=== PATIENT | male | born 1980 | race American Indian/Alaskan Native ===

== ENCOUNTER 2017-11-24 22:59 | Emergency (ER) | payer OTHER ==
[2017-11-24 22:59] VITALS: BMI 28.0
[2017-11-24 23:10] VITALS: PULSE 82; RESP 20; O2SAT 97
--- NOTE | 2017-11-25 01:54 | C.PDOC ---
History Of Present Illness Patient is a 37 y/o male who presents to the ED BIBA s/p found walking the streets. Patient admits to drinking alcohol and smoking marijuana tonight. Denies SI or HI. No other physical complaints at this time. Time Seen by Provider: 11/25/17 01:53 Chief Complaint (Nursing): Substance Abuse History Per: Patient History/Exam Limitations: no limitations Onset/Duration Of Symptoms: Hrs Current Symptoms Are (Timing): Still Present Suicide/Self Injury Attempted (Context): None Modifying Factor(s): Alcohol, Marijuana Recent travel outside of the [place]: No Past Medical History Reviewed: Historical Data, Nursing Documentation, Vital Signs Vital Signs: Last Vital Signs Temp 97.9 F 11/24/17 23:06 Pulse 82 11/24/17 23:06 Resp 20 11/24/17 23:06 BP 132/76 11/24/17 23:06 Pulse Ox 97 11/25/17 02:36 - Medical History PMH: Bipolar Disorder, Bronchitis, Schizophrenia Denies: Diabetes, Hepatitis, HIV, HTN, Chronic Kidney Disease, Seizures, Sexually Transmitted Disease Surgical History: Back Surgery Family History: States: No Known Family Hx - Social History Hx Tobacco Use: Yes (5 CIG/DAY) Hx Alcohol Use: Yes Hx Substance Use: Yes - Immunization History Hx Tetanus Toxoid Vaccination: No Hx Influenza Vaccination: No Hx Pneumococcal Vaccination: No Review Of Systems Neurological: Positive for: Other (EtOH and marijuana intoxication) Psych: Positive for: Other (denies homicidal ideation). Negative for: Suicidal ideation Physical Exam - Physical Exam Appears: No Acute Distress Skin: Warm, Dry Head: Normacephalic Oral Mucosa: Moist Chest: Symmetrical Cardiovascular: Rhythm Regular, No Murmur Respiratory: Normal Breath Sounds, No Rales, No Rhonchi, No Wheezing Gastrointestinal/Abdominal: Soft, No Tenderness ED Course And Treatment O2 Sat by Pulse Oximetry: 97 Pulse Ox Interpretation: Normal Progress Note: Patient under ED observation until sobriety is reached. Reevaluation Time: 05:44 Reassessment Condition: Improved Disposition Counseled Patient/Family Regarding: Studies Performed, Diagnosis, Need For Followup - Disposition Referrals: [facility] [Outside] Disposition: HOME/ ROUTINE Disposition Time: 01:53 Condition: FAIR Instructions: Alcohol Intoxication (DC) Forms: [employer] (Dutch) - Clinical Impression Clinical Impression: Alcohol intoxication - Scribe Statement The provider has reviewed the documentation as recorded by the Scribe Nicole Owen All medical record entries made by the Scribe were at my direction and personally dictated by me. I have reviewed the chart and agree that the record accurately reflects my personal performance of the history, physical exam, medical decision making, and the department course for this patient. I have also personally directed, reviewed, and agree with the discharge instructions and disposition.
[2017-11-25 05:57] VITALS: BP 130/70; TEMP 98
== END 2017-11-25 05:55 | disposition home or self-care (01) ==
LOC: C.ER 22:59
DX: F10.129 Alcohol abuse with intoxication, unspecified (principal); F17.210 Nicotine dependence, cigarettes, uncomplicated